=== PATIENT | female | born 1970 | race African-American/Black ===

== ENCOUNTER 2023-08-30 20:39 | Inpatient (IN) | payer OTHER ==
[2023-08-30 15:39] VITALS: BMI 20.8
[2023-08-30] MEDS ORDERED: guaiFENesin 600 MG TABLET.ER (FP) PO PRN (22:02)
[2023-08-30] MEDS ORDERED: POLYETHYLENE GLYCOL (HEALTHYLAX) 3350 17 GM PACKET PO PRN (22:02)
[2023-08-30] MEDS ORDERED: LOPERAMIDE HCL 2 MG CAPSULE PO PRN (22:02)
[2023-08-30] MEDS ORDERED: MAGNESIUM HYDROX 2400MG/30ML ORAL SUSPENSION 30 ML CUP PO PRN (22:02)
[2023-08-30] MEDS ORDERED: NALOXONE HCL (KLOXXADO) 8 MG SPRAY NS PRN (22:02)
[2023-08-30] MEDS ORDERED: BENZONATATE 200 MG CAPSULE PO PRN (22:02)
[2023-08-30] MEDS ORDERED: MAG HYDROX/AL HYDROX/SIMETH 30 ML UNIT-DOSE CUP PO PRN (22:02)
[2023-08-30] MEDS ORDERED: DICYCLOMINE HCL 10 MG CAPSULE PO PRN (22:02)
[2023-08-30] MEDS ORDERED: P-EPHED 60MG/TRIPROLIDI 2.5MG TABLET PO PRN (22:02)
[2023-08-30] MEDS ORDERED: NALOXONE HCL 0.4 MG/ML VIAL IM PRN (22:02)
[2023-08-31] MEDS: PRENATAL VITAMINS W/ FOLIC ACID TABLET (FP) PO SCH (10:01)
[2023-08-31] MEDS: METHOCARBAMOL 500 MG TABLET PO PRN ×2 (10:03→22:10)
[2023-08-31] MEDS: AZITHROMYCIN 250 MG TABLET PO SCH (10:25)
[2023-08-31] MEDS: diazePAM 5 MG TABLET PO SCH ×3 (11:26→22:09)
[2023-08-31] MEDS ORDERED: methaDONE HCL 10 MG TABLET (FOR DETOX USE ONLY) PO ONE (11:30)
[2023-08-31] MEDS: THIAMINE HCL 100 MG TABLET (FP) PO SCH (22:09)
[2023-08-31] MEDS: MELATONIN 5 MG TABLETS PO SCH (22:09)
[2023-09-01] MEDS: diazePAM 5 MG TABLET PO SCH ×4 (05:57→22:01)
[2023-09-01] MEDS: PRENATAL VITAMINS W/ FOLIC ACID TABLET (FP) PO SCH (10:19)
[2023-09-01] MEDS: AZITHROMYCIN 250 MG TABLET PO SCH (10:19)
[2023-09-01] MEDS: METHOCARBAMOL 500 MG TABLET PO PRN (10:20)
[2023-09-01] MEDS: cloNIDine HCL 0.1 MG TABLET PO PRN ×2 (10:21→17:26)
[2023-09-01] MEDS: NICOTINE POLACRILEX 2 MG GUM BUC PRN ×4 (12:34→21:53)
[2023-09-01] MEDS: diazePAM 5 MG TABLET PO PRN (13:13)
[2023-09-01] MEDS: hydrOXYzine PAMOATE 25 MG CAPSULE (FP) PO PRN ×2 (15:14→22:02)
[2023-09-01] MEDS: ACETAMINOPHEN 325 MG TABLET (FP) PO PRN (17:26)
[2023-09-01 18:28] LABS: URINE APPEARANCE Clear; URINE BILIRUBIN Negative (NEGATIVE); URINE COLOR Yellow; URINE GLUCOSE (UA) Negative (NEGATIVE); URINE KETONE Negative (NEGATIVE); URINE LEUK ESTERASE 1+ (NEGATIVE); URINE NITRITE Negative (NEGATIVE); URINE PROTEIN Negative (NEGATIVE); URINE UROBILINOGEN 0.2 mg/dL (0.2-1.0)
[2023-09-01] MEDS: MELATONIN 5 MG TABLETS PO SCH (22:01)
[2023-09-01] MEDS: THIAMINE HCL 100 MG TABLET (FP) PO SCH (22:01)
[2023-09-01] MEDS: IBUPROFEN 600 MG TABLET (FP) PO PRN (22:02)
[2023-09-02] MEDS: ACETAMINOPHEN 325 MG TABLET (FP) PO PRN (02:57)
[2023-09-02] MEDS: METHOCARBAMOL 500 MG TABLET PO PRN ×2 (02:57→13:53)
[2023-09-02] MEDS: diazePAM 5 MG TABLET PO SCH ×3 (05:16→22:18)
[2023-09-02] MEDS: hydrOXYzine PAMOATE 25 MG CAPSULE (FP) PO PRN ×3 (05:17→22:18)
[2023-09-02] MEDS: NICOTINE POLACRILEX 2 MG GUM BUC PRN ×4 (05:17→17:39)
[2023-09-02] MEDS: BISMUTH SUBSALICYLATE 524 MG/30 ML PO PRN (05:19)
[2023-09-02] MEDS: AZITHROMYCIN 250 MG TABLET PO SCH (09:52)
[2023-09-02] MEDS: PRENATAL VITAMINS W/ FOLIC ACID TABLET (FP) PO SCH (09:52)
[2023-09-02] MEDS: diazePAM 5 MG TABLET PO PRN ×2 (09:53→17:41)
[2023-09-02] MEDS: IBUPROFEN 600 MG TABLET (FP) PO PRN ×2 (09:54→17:44)
[2023-09-02] MEDS ORDERED: methaDONE HCL 10 MG TABLET (FOR DETOX USE ONLY) PO ONE (10:00)
[2023-09-02] MEDS: guaiFENesin 200 MG/10 ML 10 ML UNIT-DOSE CUPS PO PRN (13:49)
[2023-09-02] MEDS: NICOTINE 14 MG/24 HOURS TOPICAL PATCH TD SCH (17:39)
[2023-09-02] MEDS: PSEUDOEPHEDRINE HCL 30 MG TABLET PO SCH ×2 (17:39→23:15)
[2023-09-02] MEDS: MELATONIN 5 MG TABLETS PO SCH (22:17)
[2023-09-02] MEDS: traZODone HCL 50 MG TABLET (FP) PO SCH (22:17)
[2023-09-02] MEDS: THIAMINE HCL 100 MG TABLET (FP) PO SCH (22:17)
[2023-09-03] MEDS: diazePAM 5 MG TABLET PO SCH ×2 (05:56→17:08)
[2023-09-03] MEDS: PSEUDOEPHEDRINE HCL 30 MG TABLET PO SCH ×4 (05:57→23:24)
[2023-09-03] MEDS: hydrOXYzine PAMOATE 25 MG CAPSULE (FP) PO PRN ×3 (07:29→21:44)
[2023-09-03] MEDS: NICOTINE POLACRILEX 2 MG GUM BUC PRN ×3 (07:30→21:44)
[2023-09-03] MEDS: PRENATAL VITAMINS W/ FOLIC ACID TABLET (FP) PO SCH (09:43)
[2023-09-03] MEDS: IBUPROFEN 600 MG TABLET (FP) PO PRN (09:43)
[2023-09-03] MEDS: AZITHROMYCIN 250 MG TABLET PO SCH (09:43)
[2023-09-03] MEDS: NICOTINE 14 MG/24 HOURS TOPICAL PATCH TD SCH (09:43)
[2023-09-03] MEDS: guaiFENesin 200 MG/10 ML 10 ML UNIT-DOSE CUPS PO PRN (09:44)
[2023-09-03] MEDS: ALBUTEROL SO4 HFA INHALER IH PRN (10:35)
[2023-09-03] MEDS: diazePAM 5 MG TABLET PO PRN (10:48)
[2023-09-03] MEDS: NITROFURANTOIN MACROCRYSTAL 50 MG CAPSULE (FP) PO SCH ×3 (12:05→23:24)
[2023-09-03] MEDS: BENZOCAINE/MENTHOL (CHLORASEPTIC ) LOZENGE MM PRN (17:07)
[2023-09-03] MEDS: traZODone HCL 50 MG TABLET (FP) PO SCH (21:43)
[2023-09-03] MEDS: THIAMINE HCL 100 MG TABLET (FP) PO SCH (21:43)
[2023-09-03] MEDS: MELATONIN 5 MG TABLETS PO SCH (21:43)
[2023-09-03] MEDS: BISMUTH SUBSALICYLATE 524 MG/30 ML PO PRN (21:52)
[2023-09-04] MEDS: hydrOXYzine PAMOATE 25 MG CAPSULE (FP) PO PRN ×4 (05:25→22:17)
[2023-09-04] MEDS: IBUPROFEN 400 MG TABLET (FP) PO PRN (05:25)
[2023-09-04] MEDS ORDERED: diazePAM 5 MG TABLET PO ONE (06:00)
[2023-09-04] MEDS: NITROFURANTOIN MACROCRYSTAL 50 MG CAPSULE (FP) PO SCH ×4 (06:23→23:04)
[2023-09-04] MEDS: PSEUDOEPHEDRINE HCL 30 MG TABLET PO SCH ×4 (06:23→23:04)
[2023-09-04] MEDS: NICOTINE POLACRILEX 2 MG GUM BUC PRN ×5 (06:50→22:18)
[2023-09-04] MEDS ORDERED: methaDONE HCL 10 MG TABLET (FOR DETOX USE ONLY) PO ONE (10:00)
[2023-09-04] MEDS: NICOTINE 14 MG/24 HOURS TOPICAL PATCH TD SCH (10:01)
[2023-09-04] MEDS: PRENATAL VITAMINS W/ FOLIC ACID TABLET (FP) PO SCH (10:01)
[2023-09-04] MEDS: METHOCARBAMOL 500 MG TABLET PO PRN ×2 (10:04→22:17)
[2023-09-04] MEDS ORDERED: cloNIDine HCL 0.1 MG TABLET PO ONE (10:37)
[2023-09-04] MEDS: MELATONIN 5 MG TABLETS PO SCH (22:17)
[2023-09-04] MEDS: THIAMINE HCL 100 MG TABLET (FP) PO SCH (22:17)
[2023-09-04] MEDS: traZODone HCL 50 MG TABLET (FP) PO SCH (22:17)
[2023-09-05] MEDS: PSEUDOEPHEDRINE HCL 30 MG TABLET PO SCH ×2 (05:22→11:28)
[2023-09-05] MEDS: IBUPROFEN 400 MG TABLET (FP) PO PRN (05:23)
[2023-09-05] MEDS: NITROFURANTOIN MACROCRYSTAL 50 MG CAPSULE (FP) PO SCH ×2 (05:23→11:28)
[2023-09-05] MEDS: hydrOXYzine PAMOATE 25 MG CAPSULE (FP) PO PRN ×2 (05:23→11:21)
[2023-09-05] MEDS: BENZOCAINE/MENTHOL (CHLORASEPTIC ) LOZENGE MM PRN (07:32)
[2023-09-05 08:41] VITALS: BP 111/68; PULSE 76; RESP 16; TEMP 97.3
[2023-09-05] MEDS: ALBUTEROL SO4 HFA INHALER IH PRN (08:45)
[2023-09-05] MEDS: PRENATAL VITAMINS W/ FOLIC ACID TABLET (FP) PO SCH (10:39)
[2023-09-05] MEDS: NICOTINE 14 MG/24 HOURS TOPICAL PATCH TD SCH (10:39)
[2023-09-05] MEDS: NICOTINE POLACRILEX 2 MG GUM BUC PRN (11:21)
== END 2023-09-05 12:11 | disposition other institution (70) | DRG 773 ==
LOC: YASAS 20:39 → Y3N 22:42
PROVIDERS: ADMIT Allergy & Immunology; ATTEND Surgery
PROC: HZ2ZZZZ Detoxification Services for Substance Abuse Treatment (ICD-10-PCS; principal; 2023-08-30)
DX: F11.23 Opioid dependence with withdrawal (principal); F10.230 Alcohol dependence with withdrawal, uncomplicated; F14.20 Cocaine dependence, uncomplicated; F17.210 Nicotine dependence, cigarettes, uncomplicated; F19.24 Other psychoactive substance dependence with psychoactive substance-induced mood disorder; J06.9 Acute upper respiratory infection, unspecified; N39.0 Urinary tract infection, site not specified; Z56.0 Unemployment, unspecified; Z59.00 Homelessness unspecified
CPT/HCPCS: 0241U-QW; 36415; 71045-TC-FY; 80053; 81003; 81025; 83735; 85025; 87635; 87811; 93005; 93010; 99282-25